=== PATIENT | female | born 1990 | race Caucasian/White ===

== ENCOUNTER 2018-01-02 12:04 | Inpatient (IN) | payer BC ==
[~2018-01-02] VITALS: Ht 170.2 cm; Wt 88.0 kg
[2018-01-06 11:16] LABS: HEMATOCRIT 35.6 % (36-48); MEAN CORPUSCULAR HEMOGLOBIN 31.6 pg (27.0-33.0); MEAN CORPUSCULAR HGB CONC 35.3 g/dL (32.0-36.0); MEAN CORPUSCULAR VOLUME 89.4 fL (79-99); PLATELET COUNT (AUTO) 204 K/uL (130-400); RED BLOOD CELL COUNT(AUTO) 3.98 MIL/uL (4.00-5.50); RED CELL DISTRIBUTION WIDTH 13.8 % (11.0-15.5); WHITE BLOOD COUNT (AUTO) 8.7 K/uL (4.8-10.8)
[2018-01-07] MEDS ORDERED: CEFAZOLIN SODIUM 1 GM VIAL IVP PRN (05:45)
[2018-01-07] MEDS ORDERED: LACTATED RINGERS 1000ML 1,000 ML IV SCH (05:45)
[2018-01-07 07:37] LABS: HEPATITIS Bs ANTIGEN SCREEN P Negative (Negative)
[2018-01-07] MEDS ORDERED: OXYTOCIN-LR 20 UNITS/1000 ML 1,000 ML IV PRN (09:45)
[2018-01-07] MEDS ORDERED: PROMETHAZINE HCL 25 MG/ML 1ML AMPULE IM PRN ×2 (09:45→13:00)
[2018-01-07] MEDS ORDERED: MEPERIDINE-PF 75 MG/ML SYG IM PRN (09:45)
[2018-01-07] MEDS ORDERED: SODIUM CHLORIDE 0.9% 10 ML VIAL IVP PRN (09:45)
[2018-01-07 10:05] VITALS: BP 119/51
[2018-01-07] MEDS ORDERED: LANOLIN 30GM OINTMENT TP PRN (11:45)
[2018-01-07 11:48] VITALS: BP 108/53
[2018-01-07] MEDS: HYDROCODONE/ACETAMINOPHEN 5/325 MG TAB PO PRN ×3 (12:56→20:44)
[2018-01-07] MEDS ORDERED: EPHEDRINE SULFATE 50 MG/ML AMPULE IVP PRN (13:00)
[2018-01-07] MEDS ORDERED: NALOXONE HCL 0.4 MG/1 ML ML IVP PRN (13:00)
[2018-01-07] MEDS ORDERED: MORPHINE SULFATE 2 MG/ML 1ML SYG IVP PRN (13:00)
[2018-01-07] MEDS ORDERED: ONDANSETRON HCL 4 MG/2 ML VIAL IVP PRN ×2 (13:00)
[2018-01-07] MEDS ORDERED: ONDANSETRON HCL 4 MG/2 ML 8 MG in SODIUM CHLORIDE 0.9% 50 ML IVP NR (13:00)
[2018-01-07] MEDS ORDERED: HYDROCODONE/ACETAMINOPHEN 5/325 MG TAB PO PRN (13:00)
[2018-01-07] MEDS ORDERED: DiphenhydrAMINE HCL 50 MG/ML VIAL IVP PRN (13:00)
[2018-01-07] MEDS ORDERED: METOCLOPRAMIDE 10 MG/2 ML VIAL IVP PRN (13:00)
[2018-01-07 15:39] VITALS: BP 120/63
[2018-01-07] MEDS: DEXTROSE 5 %-0.45 % NACL 1,000 ML IV PRN (16:44)
[2018-01-07 19:27] VITALS: BP 117/59
[2018-01-07] MEDS: DIPH,PERTUSS(ACELL),TET VAC/PF 0.5 ML VIAL IM SCH (21:07)
[2018-01-07] MEDS: MEASLES/MUMPS/RUBELLA VACCINE, LIVE 0.5 ML/VIAL SQ SCH (21:10)
[2018-01-07 23:59] VITALS: BP 109/63
[2018-01-08] MEDS: DEXTROSE 5 %-0.45 % NACL 1,000 ML IV PRN ×2 (00:04→08:11)
[2018-01-08] MEDS: HYDROCODONE/ACETAMINOPHEN 5/325 MG TAB PO PRN ×4 (01:04→13:45)
[2018-01-08 03:52] VITALS: BP 108/58
[2018-01-08 07:01] LABS: HEMATOCRIT 29.5 % (36-48); MEAN CORPUSCULAR HEMOGLOBIN 32.2 pg (27.0-33.0); MEAN CORPUSCULAR HGB CONC 35.3 g/dL (32.0-36.0); MEAN CORPUSCULAR VOLUME 91.1 fL (79-99); PLATELET COUNT (AUTO) 150 K/uL (130-400); RED BLOOD CELL COUNT(AUTO) 3.23 MIL/uL (4.00-5.50); RED CELL DISTRIBUTION WIDTH 13.8 % (11.0-15.5); WHITE BLOOD COUNT (AUTO) 8.5 K/uL (4.8-10.8)
[2018-01-08 07:35] VITALS: BP 114/64
[2018-01-08] MEDS ORDERED: LANOLIN 30GM OINTMENT TP PRN (10:15)
[2018-01-08] MEDS ORDERED: ACETAMINOPHEN-CODEINE 300/30MG TAB PO PRN (10:15)
[2018-01-08] MEDS ORDERED: BISACODYL 10 MG SUPP.RECT RC PRN (10:15)
[2018-01-08] MEDS: DIPH,PERTUSS(ACELL),TET VAC/PF 0.5 ML VIAL IM SCH (11:45)
[2018-01-08] MEDS: MEASLES/MUMPS/RUBELLA VACCINE, LIVE 0.5 ML/VIAL SQ SCH (11:45)
[2018-01-08 12:00] VITALS: BP 114/74
[2018-01-08] MEDS: SIMETHICONE 80 MG TAB.CHEW PO PRN ×3 (13:29→20:35)
[2018-01-08] MEDS: IBUPROFEN 800 MG TAB PO SCH ×2 (13:29→18:22)
[2018-01-08 15:50] VITALS: BP 108/64
[2018-01-08 19:40] VITALS: BP 125/73
[2018-01-08] MEDS: DOCUSATE SODIUM 100 MG CAP PO SCH (20:35)
[2018-01-08 23:39] VITALS: BP 126/78
[2018-01-09] MEDS: IBUPROFEN 800 MG TAB PO SCH ×2 (02:08→10:50)
[2018-01-09] MEDS: DIPH,PERTUSS(ACELL),TET VAC/PF 0.5 ML VIAL IM SCH (03:13)
[2018-01-09] MEDS: MEASLES/MUMPS/RUBELLA VACCINE, LIVE 0.5 ML/VIAL SQ SCH (03:14)
[2018-01-09 03:30] VITALS: BP 125/76
[2018-01-09 07:58] VITALS: BP 116/98
[2018-01-09] MEDS: SIMETHICONE 80 MG TAB.CHEW PO PRN (08:26)
[2018-01-09] MEDS: DOCUSATE SODIUM 100 MG CAP PO SCH (08:26)
[2018-01-09 11:21] VITALS: BP 114/70
[2018-01-09] MEDS ORDERED: LIDOCAINE 5% TOPICAL PATCH TP ONE (14:07)
[2018-01-10] MEDS ORDERED: LIDOCAINE 5% TOPICAL PATCH TP SCH (09:00)
== END 2018-01-09 14:35 | disposition home or self-care (01) | DRG 765 ==
LOC: LDH 01-07 05:39 → WSH 01-07 09:42 → PREOBSVTOIN 01-07 17:01
PROVIDERS: ADMIT Specialist; ATTEND Specialist
PROC: 10D00Z1 Extraction of Products of Conception, Low, Open Approach (ICD-10-PCS; principal; 2018-01-07)
PROC: 3E0134Z Introduction of Serum, Toxoid and Vaccine into Subcutaneous Tissue, Percutaneous Approach (ICD-10-PCS; 2018-01-07)
PROC: 3E0234Z Introduction of Serum, Toxoid and Vaccine into Muscle, Percutaneous Approach (ICD-10-PCS; 2018-01-07)
DX: O90.81 Anemia of the puerperium (principal); D62 Acute posthemorrhagic anemia; Z23 Encounter for immunization; Z37.0 Single live birth; Z3A.40 40 weeks gestation of pregnancy
CPT/HCPCS: 36415; 59510; 85027; 86592; 86850; 86900; 86901; 87340; 90707; 90715; A4344; A4606; J0690; J2175; J2590; J7120